=== PATIENT | male | born 1940 | race Caucasian/White ===

== ENCOUNTER 2016-11-24 11:25 | Emergency (ER) | payer MEDICARE, BC ==
[~2016-11-24] VITALS: Ht 162.6 cm; Wt 75.0 kg
[~2016-11-24 11:25] MED LIST changes: -BUPIVACAINE HCL PF 0.5% 30 ML VIAL ONE; -BUPIVACAINE HCL PF 0.75% 30 ML VIAL ONE; -PRED20 PO; -PROPOFOL 200 MG/20 ML AMP IV ONE; -TRIAMCINOLONE ACETONIDE 40 MG/ML VIAL I-ARTICULR ONE; -methylPREDNISolone ACETATE 40 MG/ML VIAL I-ARTICULR ONE
[2016-11-24 11:28] VITALS: BP 204/85; PULSE 79; RESP 18; TEMP 98.6; O2SAT 95
--- NOTE | 2016-11-24 11:33 | PD ---
HPI Chief Complaint: Allergic/Adverse Reaction Time Seen by Provider: 11:28 Travel History International Travel<30 days: No Contact w/Intl Traveler<30days: No Traveled to known affect area: No History of Present Illness HPI patient 76-year-old male presents emergency department for possible allergic reaction. Patient was undergoing fluoroscopic guided facet joint injection at bilateral L3-L4, L4-L5 and L5-S1. Patient states that after the injections this morning he began to have burning sensation in all 4 of his extremities well some swelling in his tongue. He states this is never happened to him before any of these prior injections. According to the documentation by Dr. Miller the patient did receive propofol during the procedure, he was injected with Marcaine and Kenalog in all 6 joints as above. Patient denies any difficulty swallowing denies any shortness of breath denies any difficulty swallowing. The patient states his symptoms are moderate, started just prior to arrival and worsening. PFSH Past Medical History Narrative Medical Hypertension, depression, chronic back pain. Past Surgical History Narrative Surgical Knee replacement, laminectomy Family History Family History: Negative Social History Tobacco Use: No Allergies-Medications (Allergen,Severity, Reaction): Coded Allergies: penicillin G (Unverified Allergy, Unknown, 11/24/16) Reported Meds & Prescriptions Reported Meds & Active Scripts Active Prednisone 20 Mg Tab 60 Mg PO DAILY 4 Days Reported Adderall (Amphetamine-Dextroamphetamine) 20 Mg Tab 20 Mg PO DAILY Avoid late evening doses. Space doses at least 4 to 6 hours if more than once/day dosing. Omeprazole 20 Mg Tab 20 Mg PO DAILY Metoprolol Tartrate 25 Mg Tab 25 Mg PO DAILY Citalopram (Citalopram Hydrobromide) 20 Mg Tab 20 Mg PO DAILY Amlodipine (Amlodipine Besylate) 5 Mg Tab 5 Mg PO DAILY Naproxen 500 Mg Tab 500 Mg PO BID Tamsulosin (Tamsulosin HCl) 0.4 Mg Cap 0.4 Mg PO BID Trazodone (Trazodone HCl) 150 Mg Tablet 150 Mg PO HS Review of Systems Except as stated in HPI: all other systems reviewed are Neg Physical Exam Narrative GENERAL: Well-developed well-nourished no obvious distress SKIN: Focused skin assessment warm/dry. No rash seen. Examination injection sites show no rash no wound HEAD: Atraumatic. Normocephalic. EYES: Pupils equal and round. No scleral icterus. No injection or drainage. ENT: No nasal bleeding or discharge. Mucous membranes pink and moist. There appears to be in minimal amount of nonlocalizing tongue edema, the patient does have some mild slurred speech. NECK: Trachea midline. No JVD. CARDIOVASCULAR: Regular rate and rhythm. No murmur appreciated. RESPIRATORY: No accessory muscle use. Clear to auscultation. Breath sounds equal bilaterally. GASTROINTESTINAL: Abdomen soft, non-tender, nondistended. Hepatic and splenic margins not palpable. MUSCULOSKELETAL: No obvious deformities. No clubbing. No cyanosis. No edema. NEUROLOGICAL: Awake and alert. No obvious cranial nerve deficits. Motor grossly within normal limits. Mild slurred speech probably secondary to tongue swelling. 5 out of 5 strength in all 4 extremities. PSYCHIATRIC: Appropriate mood and affect; insight and judgment normal. Data Data Last Documented VS Vital Signs Date Time Temp Pulse Resp B/P (MAP) Pulse Ox O2 Delivery O2 Flow Rate FiO2 11/24/16 14:57 11/24/16 12:56 54 18 96 Room Air 11/24/16 11:28 98.6 Orders Orders Complete Blood Count With Diff (11/24/16 11:34) Comprehensive Metabolic Panel (11/24/16 11:34) Ecg Monitoring (11/24/16 11:34) Bilateral Bp Monitoring (11/24/16 11:34) Iv Access Insert/Monitor (11/24/16 11:34) Oximetry (11/24/16 11:34) Oxygen Administration (11/24/16 11:34) Sodium Chloride 0.9% Flush (Ns Flush) (11/24/16 11:45) Diphenhydramine Inj (Benadryl Inj) (11/24/16 11:45) Prednisone (Deltasone) (11/24/16 11:45) Famotidine Inj (Pepcid Inj) (11/24/16 11:45) Ed Discharge Order (11/24/16 14:39) Labs Laboratory Tests Test 11/24/16 11:28 White Blood Count 6.2 TH/MM3 Red Blood Count 4.43 MIL/MM3 Hemoglobin 14.8 GM/DL Hematocrit 42.9 % Mean Corpuscular Volume 97.0 FL Mean Corpuscular Hemoglobin 33.5 PG Mean Corpuscular Hemoglobin Concent 34.5 % Red Cell Distribution Width 11.3 % Platelet Count 275 TH/MM3 Mean Platelet Volume 8.1 FL Neutrophils (%) (Auto) 69.7 % Lymphocytes (%) (Auto) 23.8 % Monocytes (%) (Auto) 5.4 % Eosinophils (%) (Auto) 0.8 % Basophils (%) (Auto) 0.3 % Neutrophils # (Auto) 4.4 TH/MM3 Lymphocytes # (Auto) 1.5 TH/MM3 Monocytes # (Auto) 0.3 TH/MM3 Eosinophils # (Auto) 0.0 TH/MM3 Basophils # (Auto) 0.0 TH/MM3 CBC Comment DIFF FINAL Differential Comment Blood Urea Nitrogen 22 MG/DL Creatinine 0.73 MG/DL Random Glucose 128 MG/DL Total Protein 7.5 GM/DL Albumin 4.2 GM/DL Calcium Level 8.8 MG/DL Alkaline Phosphatase 119 U/L Aspartate Amino Transf (AST/SGOT) 17 U/L Alanine Aminotransferase (ALT/SGPT) 28 U/L Total Bilirubin 0.7 MG/DL Sodium Level 138 MEQ/L Potassium Level 3.9 MEQ/L Chloride Level 104 MEQ/L Carbon Dioxide Level 26.5 MEQ/L Anion Gap 8 MEQ/L Estimat Glomerular Filtration Rate 105 ML/MIN MDM Medical Decision Making Medical Screen Exam Complete: Yes Emergency Medical Condition: Yes Differential Diagnosis Allergic reaction seems unlikely, BRIANDA inhibitor angioedema, angioedema, allergic reaction. Narrative Course Patient roomed emergency department, he had some minimal tongue edema and some noticeable slurred speech on arrival, after observing him in the emergency room for 3 hours he states his tongue swelling has resolved, he is now able to talk without any slurred speech at all. He appears well and his symptoms have not worsened. His is a nurse. Discussed at length with him that I think that this may represent BRIANDA inhibitor angioedema and recommended discontinuing this medication. Discussed return to ED criteria at length with them. They're stable for discharge and appeared to be reliable for return. Diagnosis Primary Impression: Angioedema Qualified Codes: T78.3XXA - Angioneurotic edema, initial encounter Additional Impression: BRIANDA inhibitor-aggravated angioedema Additional Instructions: call your primary care physician for an appointment to discuss her blood pressure management going forward, recommend discontinuing her lisinopril for the near future. If you experience any worsening tongue swelling throat swelling difficulty swallowing or breathing call 911. Med/Other Pt SpecificInfo: Prescription(s) given Scripts Prednisone (Prednisone) 20 Mg Tab 60 MG PO DAILY for 4 Days, #12 TAB 0 Refills Prov: Kvng Cordova MD 11/24/16 Disposition: 01 DISCHARGE HOME Condition: Stable Kvng Cordova MD Nov 24, 2016 11:33
[2016-11-24] MEDS ORDERED: SODIUM CHLORIDE 0.9% FLUSH 10 ML FLUSH IVF PRN (11:45)
[2016-11-24] MEDS ORDERED: diphenhydrAMINE HCL 50 MG/ML VIAL IV PUSH ONE (11:45)
[2016-11-24] MEDS ORDERED: predniSONE 20 MG TAB PO ONE (11:45)
[2016-11-24] MEDS ORDERED: FAMOTIDINE 20 MG/2 ML VIAL IV PUSH SCH (11:45)
[2016-11-24 11:46] VITALS: BP 156/76; PULSE 67; RESP 18; O2SAT 95
[2016-11-24 11:47] VITALS: O2SAT 95
[2016-11-24 11:51] VITALS: BP_SYST 152; BP_SYST 156; BP_DIAS 76; BP_DIAS 80
[2016-11-24 11:59] LABS: AUTOMATED NEUTROPHIL # 4.4 TH/MM3 (1.8-7.7); BASOPHIL % 0.3 % (0.0-2.0); EOSINOPHIL % 0.8 % (0.0-4.0); HEMATOCRIT 42.9 % (39.0-51.0); HEMO FLAGS DIFF FINAL; LYMPH % 23.8 % (9.0-44.0); LYMPHOCYTE # 1.5 TH/MM3 (1.0-4.8); MEAN CORPUSCULAR HEMOGLOBIN 33.5 PG (27.0-34.0); MEAN CORPUSCULAR HGB CONC 34.5 % (32.0-36.0); MONO % 5.4 % (0.0-8.0); NEUT % 69.7 % (16.0-70.0); PLATELET COUNT 275 TH/MM3 (150-450); RED BLOOD COUNT 4.43 MIL/MM3 (4.50-5.90); RED CELL DISTRIBUTION WIDTH 11.3 % (11.6-17.2); WHITE BLOOD COUNT 6.2 TH/MM3 (4.0-11.0)
[2016-11-24 12:10] LABS: CHLORIDE 104 MEQ/L (98-107); POTASSIUM 3.9 MEQ/L (3.5-5.1); SODIUM (NA) 138 MEQ/L (136-145)
[2016-11-24 12:14] LABS: ANION GAP 8 MEQ/L (5-15); BICARBONATE 26.5 MEQ/L (21.0-32.0); BLOOD UREA NITROGEN 22 MG/DL (7-18)
[2016-11-24 12:17] LABS: ALT (GPT) 28 U/L (12-78); AST (GOT) 17 U/L (15-37); GLOMERULAR FILTRATION RATE 105 ML/MIN (>89)
[2016-11-24 12:19] LABS: TOTAL BILIRUBIN ADULT 0.7 MG/DL (0.2-1.0)
[2016-11-24 12:20] LABS: ALKALINE PHOSPHATASE 119 U/L (45-117)
[2016-11-24 12:56] VITALS: BP 152/76; PULSE 54; RESP 18; O2SAT 96
[2016-11-24] MEDS ORDERED: PRED20 PO (14:38)
== END 2016-11-24 14:59 | disposition home or self-care (01) ==
LOC: PHED 11:25
DX: T78.3XXA Angioneurotic edema, initial encounter (principal); I10 Essential (primary) hypertension; Z86.59 Personal history of other mental and behavioral disorders; Z87.39 Personal history of other diseases of the musculoskeletal system and connective tissue
CPT/HCPCS: 80053; 85025; 96374; 96375; 99284; J1200; J7512

== ENCOUNTER → 2016-11-24 | Day surgery (SDC) | payer MEDICARE, BC ==
[~2016-11-24] MED LIST: ADDE20 PO; AMLO5TAB2 PO; BUPIVACAINE HCL PF 0.5% 30 ML VIAL ONE; BUPIVACAINE HCL PF 0.75% 30 ML VIAL ONE; BUPR100T4 PO; CITA20TA4 PO; LAMO100 PO; LISI40TA PO; METO25TA3 PO; NAPR500T PO; OMEP10CA PO; OMEP20TA PO; PRED20 PO; PROPOFOL 200 MG/20 ML AMP IV ONE; SIMV40TA PO; TAMS0.4C4 PO; TRAZ1TAB45 PO; TRIAMCINOLONE ACETONIDE 40 MG/ML VIAL I-ARTICULR ONE; methylPREDNISolone ACETATE 40 MG/ML VIAL I-ARTICULR ONE
--- NOTE | 2016-11-24 11:03 | M6 ---
cc: Zac MILLER DATE 11/24/2016 DATE OF 1940 PROCEDURE Fluoroscopically guided injection bilateral lumbar facet joints (bilateral L3-4, L4-5 and L5-S1 facet joints. PROCEDURE NOTE History and physical was completed and signed. Consent was signed. Procedure site was marked. Medications were listed and reconciled. Pain score was recorded. Allergies were noted. Time out was taken. Fluoroscopy time was recorded where applicable. Sedation was administered or directed by Dr. Miller. The patient was given oxygen. The patient was monitored by a registered nurse. Total procedure time was greater than 15 minutes. IV was started, blood pressure cuff, pulse oximeter and EKG were applied. The patient was placed in the prone position on a Vargas table sedated with small amounts of propofol titrated to effect. Vital signs were monitored and remained stable throughout the procedure. The lumbar area was prepped with alcohol and 10% Betadine solution and draped with sterile drapes. Fluoroscopy was used in a Laz dog view to clearly visualize the bilateral lumbar facet joints at L3-4, L4-5 and L5-S1. Separate sterile 3-1/2-inch 25-gauge spinal needles were advanced into these joints under fluoroscopic guidance. There was negative aspiration for blood or any other type of fluid. At each location, the patient was given 1 mL of Marcaine 0.75% which contained 10 mg of Kenalog. Following the procedure, the patient was taken to the recovery room with stable vital signs neurologically intact. He will be evaluated immediately and with followup to determine if he has a subjective decrease in his usual pain and a corresponding objective increase his functional capabilities. MD ROMEO Lyle/OLGA /8:34 AM /11:00 AM
== END | disposition home or self-care (01) ==
LOC: PHSDC 06:57
PROVIDERS: ATTEND Pain Medicine Interventional Pain Medicine
DX: M54.5 Low back pain (principal); T78.3XXA Angioneurotic edema, initial encounter; I10 Essential (primary) hypertension
CPT/HCPCS: 64493; 64494; 64495; J1030; J3301